=== PATIENT | female | born 1950 | race Caucasian/White ===

== ENCOUNTER 2022-07-25 08:36 | Outpatient (CLI) | payer MEDICARE, BC | END 2022-07-25 23:59 | disposition home or self-care (01) | LOC: CARD DIAG 08:36 | PROVIDERS: ATTEND Internal Medicine Cardiovascular Disease | DX: I34.0 Nonrheumatic mitral (valve) insufficiency (principal); R06.02 Shortness of breath | CPT/HCPCS: 93306 ==